=== PATIENT | male | born 1945 ===

== ENCOUNTER 2018-01-28 09:45 | Day surgery (SDC) | payer MEDICARE ==
[2018-01-25 13:25] VITALS: BMI 25.8
[2018-01-28] MEDS ORDERED: Lactated Ringer's 1,000 ML IV ONE ×2 (10:00→12:49)
[2018-01-28] MEDS ORDERED: Midazolam 2 MG/2 ML VIAL ONE (10:56)
[2018-01-28] MEDS ORDERED: Propofol 10 mg/ml Inj (20 ML) ONE (10:56)
[2018-01-28] MEDS ORDERED: Lidocaine 2% Jelly (Uro-Jet) ONE (11:02)
[2018-01-28] MEDS ORDERED: Ciprofloxacin 400mg/200ml D5W 400 MG/200 ML BAG IVPB ONE (11:02)
[2018-01-28] MEDS ORDERED: Ciprofloxacin 400mg/200ml D5W IVPB ONE (11:05)
[2018-01-28] MEDS ORDERED: Lidocaine 2% Jelly (Uro-Jet) TOP ONE (11:15)
[2018-01-28] MEDS ORDERED: ePHEDrine 50 mg/ml Inj ONE (11:56)
[2018-01-28] MEDS ORDERED: Lactated Ringer's 1,000 ML IV SCH (12:45)
[2018-01-28 15:08] VITALS: O2SAT 95
[2018-01-28 15:54] VITALS: BP 133/89; PULSE 99; RESP 20; TEMP 98.3
--- NOTE | 2018-03-01 20:57 | OP ---
PROCEDURE DATE: 01/28/2018 PREOPERATIVE DIAGNOSES: Urinary retention, benign prostatic hypertrophy. POSTOPERATIVE DIAGNOSES: Urinary retention, benign prostatic hypertrophy. PROCEDURE PERFORMED: GreenLight laser of the prostate under general anesthesia. DESCRIPTION OF PROCEDURE: The patient was placed in the operating table in the dorsal lithotomy position. The area of the groin was draped and prepped in a sterile manner. Using a laser scope and under direct vision, I entered into the bladder atraumatically, identified the landmarks of the prostate, bilateral ureteral orifices, and verumontanum. At this time, I deployed a laser fiber at 80 granados, I identified the distal portion of the resection and then began to laser the prostate. I used the total of 220,000 joules of energy and blood loss was estimated to be less than 100 mL. The patient sustained the procedure well. At the end of the procedure, the ureteral orifices was re-identified and the verumontanum was circumferentially intact. At this point, a #22 three-way Harris was inserted. The patient was taken from the operating room in good condition. Paul Delaney MD
== END 2018-01-28 11:00 | disposition home or self-care (01) ==
LOC: H.OPSURG 09:45
PROVIDERS: ATTEND Urology
DX: N40.1 Benign prostatic hyperplasia with lower urinary tract symptoms (principal); R33.8 Other retention of urine; E78.5 Hyperlipidemia, unspecified; Z88.0 Allergy status to penicillin
CPT/HCPCS: 52648; J0500; J0744; J2001; J2250; J2270; J2704; J3010; J7030; J7120

== ENCOUNTER 2018-05-23 10:42 | Day surgery (SDC) | payer MEDICARE ==
[2018-05-23 11:02] VITALS: BMI 26.6
[2018-05-23] MEDS ORDERED: Lidocaine Hydrochloride 5 ML INJ ONE (12:39)
--- NOTE | 2018-05-23 12:54 | CP.SDSHP ---
Same Day Surgery H & P - History Proposed Procedure: US guided FNA of right thyroid nodule Pre-Op Diagnosis: Right thyroid nodule - Allergies Allergies: Allergies Penicillins Allergy (Verified 05/23/18 11:04) RASH - Physical Exam Vital Signs: Vital Signs 05/23/18 05/23/18 11:15 11:17 Temperature 98.9 F Pulse Rate 82 Respiratory 20 20 Rate Blood Pressure 141/67 O2 Sat by Pulse 95 Oximetry - Impression Impression: Pt with a 1.4 cm right thyroid nodule. Plan US guided FNA. Informed consent obtained. Pt. Evaluated Today:Candidate for Anesthesia & Procedure: No - Date & Time Date: 05/23/18 Time: 12:30 Short Stay Discharge - Short Stay Discharge Admitting Diagnosis/Reason for Visit: E07.9 Disposition: HOME/ ROUTINE Referrals: Anna Fournier MD [Primary Care Provider] -
--- NOTE | 2018-05-23 12:56 | PCM.SURG1 ---
Surgeon's Initial Post Op Note - Surgeon's Notes Surgeon: Koko Lr md Principal Android Developer: none Type of Anesthesia: Local Pre-Operative Diagnosis: right thyroid nodule Operative Findings: US showed a complex right thyroid nodule Post-Operative Diagnosis: right thyroid nodule Operation Performed: US guided FNA Specimen/Specimens Removed: 25 g FNA x 5 passes Estimated Blood Loss: EBL {In ML}: 0 Blood Products Given: N/A Drains Used: No Drains Post-Op Condition: Good Date of Surgery/Procedure: 05/23/18 Time of Surgery/Procedure: 12:50
[2018-05-23 12:57] VITALS: RESP 18; O2SAT 99
[2018-05-23 13:10] VITALS: BP 146/88; PULSE 66; TEMP 98.5
--- NOTE | 2018-05-24 10:41 | VASCULAR ---
PROCEDURE: Date of Procedure: 05/23/2018 PROCEDURE: 1. Ultrasound guided FNA of right thyroid nodule, CPT 56804 2. Ultrasound guidance for FNA, 47846 Medications: 3cc 1% Lidocaine HISTORY: Enlarged right thyroid nodule. TECHNIQUE: Following informed consent and procedure time-out, a limited ultrasound patient's neck confirmed the presence of a 1.4 cm complex right thyroid nodule which is predominantly solid. After the patient's neck was prepped and draped in the usual sterile fashion, the skin was anesthetized with 1% lidocaine. Ultrasound-guided fine needle aspiration was then performed of the dominant right thyroid nodule. A total of 5 passes were made into the nodule with 25 gauge needle under ultrasound guidance. The FNA specimen was sent for routine pathology and genetics . Post biopsy ultrasound showed no hematoma. IMPRESSION: Ultrasound-guided FNA of the dominant right thyroid nodule.
== END 2018-05-23 13:35 | disposition home or self-care (01) ==
LOC: H.OPSURG 10:42
PROVIDERS: ATTEND Internal Medicine
DX: E04.1 Nontoxic single thyroid nodule (principal); Z88.0 Allergy status to penicillin